=== PATIENT | male | born 1990 | race Caucasian/White ===

== ENCOUNTER 2023-09-02 18:16 | Inpatient (IN) | payer OTHER, SELFPAY ==
[2023-09-02] VITALS (13 sets, daily range): BP systolic 112–136; BP diastolic 67–83; BMI 26.8; BMI 26.5
[2023-09-02 14:56] LABS: Glucose - Point of Care 102 mg/dl (70-99)
--- NOTE | 2023-09-02 15:16 | ED.GENMED ---
History of Present Illness
General
Chief Complaint: Overdose Intentional
Time Seen by Provider: 09/02/23 15:16
History of Present Illness
History of Present Illness:
HPI: Patient comes in with police due to concerns that the patient swallowed bags of heroin and cocaine. He says that he obtained these bags while at rehab and [facility]. [facility]. He told me that
insurance ran out and he was going to be leaving anyways but then he was arrested and was brought here for further evaluation as the senior living refused him based on what happened today. He has a general unwell feeling including bilateral thigh pain.
EXAM:
GENERAL: Well appearing in no distress, he does not appear to be sedate, his eyes are open and he is interactive with examination
HEENT: Moist oral mucosa, pupils are 3 mm and slightly sluggish
CARDIOVASCULAR: No murmurs, normal heart rate, regular rhythm, No chest wall tenderness
PULMONARY: No respiratory distress, breath sounds are clear and equal
ABDOMEN: Soft with no peritoneal signs, no tenderness
NEUROLOGIC: Excellent strength all extremities, no coordination deficits
PSYCHIATRIC: Slightly agitated at times
EXTREMITIES: Nontender, no edema, moves all extremities equally
SKIN: Chronic appearing scar noted to the left anterior chest wall
TIME OF INITIAL ENCOUNTER: 3:20 PM
NUMBER AND COMPLEXITY OF PROBLEMS ADDRESSED AT THE ENCOUNTER
� Chronic conditions affecting care: High blood pressure, diabetes, anxiety/depression
� Acute Exacerbation and/or Progression of Chronic Illness: This is an acute problem
� Differential Diagnosis includes: Polysubstance use, rhabdomyolysis, electrolyte abnormality
AMOUNT AND/OR COMPLEXITY OF DATA TO BE REVIEWED AND ANALYZED
� I performed an independent evaluation of and my interpretation is:
EKG: Sinus 67, no acute ST abnormality with no old to compare
CT:
X-rays:
Laboratory Studies: White count 14.3, hemoglobin 12.6, chemistries normal however the CK is 1520, UDS positive for buprenorphine, fentanyl, and cocaine
Other:
� Review of other/old records: I reviewed records, the patient was seen here about 18 months ago after he says that he felt swallowed something like a screw but imaging at that time was reviewed and was negative.
� Clinical information was obtained by an independent historian: I spoke to corrections officers at bedside
� Prescriptions/Medications Considered but not given:
� Further testing considered but not performed:
RISK OF COMPLICATIONS AND/OR MORBIDITY OR MORTALITY OF PATIENT MANAGEMENT
� Social determinants of health affecting care: As above
� Discussion with other providers: I called [facility] toxicology at 4:28 PM however there has been no change in his clinical condition as of now.
� Escalation of care including admission/observation vs risk of discharge considered: Will give IV fluids and check labs and reassess. His initial vital signs are unremarkable and not consistent with any toxidrome. I did speak
to Dr. Elliott at [facility] and initially we had planned transfer to ICU level of care there however he [facility] in [facility] therefore be [facility] did not feel that he could cross County lines. Ultimately the
patient was accepted here by Dr. Claire for further management. I did give him 2 L of fluid does have an elevated CK. His vital signs have remained unchanged.
Past History
Past History
ED Past Medical History: HTN, NIDDM, Psychiatric (PTSD, anxiety) and Other (Drug abuse)
ED Past Surgical History: None
Social History
Tobacco: Smoker
Drug: Marijuana, Cocaine, Narcotics and IVDA
Living: senior living
Phy Exam
Physical Exam
Physical Exam:
See HPI
Course
Orders/Labs/Results
Orders:
Orders
09/02/23 15:23
0.9% Sodium Chloride 1000 ml [Nss] 1,000 ml IV BOLUS
09/02/23 16:26
Complete Blood Count/With Diff Urgent
Comprehensive Metabolic Panel Urgent
Total CK [Creatine Phosphokinase] Urgent
09/02/23 16:31
Drug Screen, Urine [Urine Drug Abuse Screen] Urgent
Date Specimen was Collected: 09/02/23
Time Specimen was Collected: 16:27
Fentanyl, Urine Urgent
09/02/23 17:28
0.9% Sodium Chloride 1000 ml [Nss] 1,000 ml IV BOLUS
09/02/23 18:02
Polyethylene Glycol 3350 [Gavilax] 238 gm PO ONCE ONE
09/02/23 18:10
Admit/Transfer Patient As Directed
Co-Sign Provider:
Level of Care: Inpatient admission
Assign to:: ICU
Physician / Group: tonya
Diagnosis: fentanyl, cocaine withdrawal
Reason for Hospitalization: fentanyl, cocaine withdrawal
Expected length of stay greater than two midnights?: Yes
ELOS- Estimated Length of Stay in days: 2
I certify the patient meets the requirements for IP care: Yes
Code Status As Directed
Resuscitation Status: Full Code
09/02/23 18:12
Buprenorphine [Subutex] 8 mg SL PRN PRN
Clinical Opioid Withdrawal Scale (COWS) .PRN
09/03/23 08:00
Buprenorphine [Subutex] 4 mg SL ONCE PRN PRN
Buprenorphine [Subutex] See Dose Instructions SL ONCE ONE
09/04/23 08:00
Buprenorphine [Subutex] See Dose Instructions SL DAILY
Abnormal Lab Results
09/02/23 09/02/23 09/02/23
14:55 16:26 16:31
WBC 14.3 H 10^3/uL
(4.8-10.8)
RBC 4.59 L 10^6/uL
(4.70-6.10)
Hgb 12.6 L g/dL
(13.0-18.0)
Hct 36.9 L %
(39.0-52.0)
MPV 10.7 H fL
(7.4-10.4)
Abs Immat Gran (auto) 0.1 H 10^3/uL
(0-0.05)
Absolute Neuts (auto) 10.7 H 10^3/uL
(1.4-6.5)
Absolute Monos (auto) 1.1 H 10^3/uL
(0.1-0.6)
Lymphocytes % 16.6 L %
(20.5-51.1)
Creatine Kinase 1520 H U/L
(55-170)
Ur Buprenorphine Positive H
(Negative)
Urine Fentanyl Screen Positive H
(Negative)
Urine Cocaine Screen Positive H
(Negative)
POC Glucose 102 H mg/dl
(70-99)
09/02/23 16:26
09/02/23 16:26
Vital Signs
Initial and Last Documented VS:
Initial Vital Signs
Temp Pulse Resp BP Pulse Ox
98.1 F 71 18 128/81 97
09/02/23 14:44 09/02/23 14:44 09/02/23 14:44 09/02/23 14:44 09/02/23 14:44
Last Documented Vital Signs
Temp Pulse Resp BP Pulse Ox
98.1 F 63 11 136/70 98
09/02/23 17:46 09/02/23 19:15 09/02/23 19:15 09/02/23 16:00 09/02/23 18:30
*Critical Care Note
Total Time (30-74mins, 75-104mins- exclusive of procedures): 45 minutes
comment:
Vital signs closely monitored for signs of any systemic toxidrome. Vital signs remained stable.
ED Attending Note
-
Portions of this chart may have been created with voice recognition software.� Occasional wrong word or��sound alike� substitutions may have occurred due to the inherent limitations of voice recognition software.
Discharge Plan
Departure
Patient Disposition: Admit
Date of Disposition: 09/02/23
Time of Disposition: 18:02
Presentation/result/management discussed w/ accepting MD/DO: Hospitalist
Discharge Problem:
Polysubstance abuse
Interventions
Interventions:
*Risk Screen - Suicide Last Done: 09/02/23 14:44
*General Assessment Last Done: 09/02/23 14:44
*Neglect/Abuse Screening Last Done: 09/02/23 14:44
ED- Fall Risk Assessment Last Done: 09/02/23 18:42
*ED COVID-19 Vaccine History Last Done: 09/02/23 18:42
ED- Cardiac Assessment Last Done: 09/02/23 15:00
ED- Neurological Assessment Last Done: 09/02/23 15:00
ED-Psychological Assessment Last Done: 09/02/23 15:00
ED- Pulmonary Assessment Last Done: 09/02/23 15:00
[2023-09-02] MEDS: NSS 1000 IV ×3 (16:34→20:00)
[2023-09-02 16:37] LABS: % Basophils 0.4 % (0-2); % Eosinophils 0.4 % (0-6); % Immature Granulocytes 0.4 % (0-0.5); % Lymphocytes 16.6 % (20.5-51.1); % Monocytes 7.6 % (1.7-9.3); % Neutrophils 74.6 % (42.2-75.2); Absolute Basophils 0.1 10^3/uL (0-0.2); Absolute Eosinophils 0.1 10^3/uL (0-0.7); Absolute Immature Granulocytes 0.1 10^3/uL (0-0.05); Absolute Lymphocytes 2.4 10^3/uL (1.2-3.4); Absolute Monocytes 1.1 10^3/uL (0.1-0.6); Absolute Neutrophils 10.7 10^3/uL (1.4-6.5); Hematocrit 36.9 % (39.0-52.0); Hemoglobin 12.6 g/dL (13.0-18.0); Mean Corp Hgb Conc. 34.1 g/dL (33.0-37.0); Mean Corpuscular Hgb 27.5 pg (27.0-31.0); Mean Corpuscular Volume 80.4 fL (80.0-94.0); Mean Platelet Volume 10.7 fL (7.4-10.4); Nucleated Red Blood Cells % 0 % (-); Platelet Count 216 10^3/uL (130-400); Red Blood Cell Count 4.59 10^6/uL (4.70-6.10); Red Cell Dist. Width 13.2 % (11.5-14.5); White Blood Cell Count 14.3 10^3/uL (4.8-10.8)
[2023-09-02 16:56] LABS: ALT (SGPT) 21 U/L (0-50); AST (SGOT) 59 U/L (17-59); Albumin 4.7 g/dl (3.5-5.0); Alkaline Phosphatase 81 U/L (38-126); Blood Urea Nitrogen 20 mg/dl (9-20); Calcium 9.7 mg/dl (8.4-10.2); Carbon Dioxide 25 mmol/L (22-30); Chloride 102 mmol/L (98-107); Estimated Creatinine Clearance 116 ml/min; Glucose 92 mg/dl (70-99); Potassium 4.1 mmol/L (3.5-5.1); Sodium 138 mmol/L (135-145); Total Bilirubin 0.7 mg/dl (0.2-1.3); Total Protein 7.2 g/dl (6.3-8.2); eGFR > 60.00
[2023-09-02 16:57] LABS: Creatine Phosphokinase 1520 U/L (55-170)
[2023-09-02 17:03] LABS: Amphetamines Negative (Negative); Barbiturates Negative (Negative); Benzodiazepines Negative (Negative); Buprenorphine Positive (Negative); Cocaine Positive (Negative); Marijuana Negative (Negative); Methadone Negative (Negative); Methamphetamines Negative (Negative); Opiates Negative (Negative); Phencyclidine Negative (Negative); Tricyclic Antidepressants Negative (Negative)
[2023-09-02 17:26] LABS: Fentanyl, Urine Positive (Negative)
--- NOTE | 2023-09-02 18:26 | HPS.HSE ---
Family Physician
-
Family Physician: INTERVIEWE UNKNOWN - PT NOT
Chief Complaint
-
drug intoxication
History of Present Illness
33-year-old male history of type 2 diabetes, asthma presenting from [facility] due to concern that patient swallowed bags of heroin and cocaine a few hours prior to arrival. He consumed 4 bags of cocaine/fentanyl. Patient
states that he was clean from drugs for over a year. He denies drinking alcohol or smoking nicotine or marijuana. Patient is complaining of cramping in his lower thighs, nausea, anxiety, chills and tremors and pain in his lower part of the belly
because he has have a bowel movement. He states he feels unwell. He also complains of chest pressure when he breathes.
Medical History
Past Medical History
Past Medical History: Reports Other ( type 2 diabetes, asthma)
Past Surgical History: Reports Other (right hand nerve surgery )
Social History
Tobacco: Non-smoker
Alcohol: None
Drug: Cocaine and Narcotics
Family History
Family History: Not pertinent
Allergies / Home Medications
Allergies reflects when Allergies were last updated in [employer].
Home Medications with original date entered in [employer]
Allergy/Medication List:
Allergies
Allergy/AdvReac Type Severity Reaction Status Date / Time
No Known Allergies Allergy Verified 02/24/22 19:15
Home Medications
buprenorphine HCl 8 mg sublingual tablet 16 mg sublingual DAILY 09/02/23
Review of Systems
-
Constitutional: Reports No Symptoms
EENT: Reports See HPI
Respiratory: Reports See HPI
Cardiac: Reports See HPI
Abdomen/GI: Reports See HPI
: Reports No Symptoms
Musculoskeletal: Reports See HPI
Skin: Reports No Symptoms
Neurological: Reports No Symptoms
Endocrine: Reports No Symptoms
Hematologic/Lymphatic: Reports No Symptoms
Psych: Reports No Symptoms
Physical Exam
Vital Signs
Vital Signs
Temp Pulse Resp BP Pulse Ox
98.1 F 81 12 136/70 99
09/02/23 17:46 09/02/23 18:00 09/02/23 18:00 09/02/23 16:00 09/02/23 17:45
Physical Exam
General: Well Developed, Well Nourished and No Apparent Distress
HEENT: NormoCephalic, Moist mucous membranes and Atraumatic
Respiratory: Clear
Cardiac: S1/S2 and Regular Rhythm; No Murmur or Rub
GI: Soft, Non Tender, Non Distended and Normal Bowel Sounds; No Organomegaly
Rectal: Deferred by Provider
Musculoskeletal: No Clubbing, No Cyanosis and No Edema
Skin: No Rash
Neuro: Nonfocal/grossly intact
Laboratory Results
-
09/02/23 16:26
09/02/23 16:26
Laboratory Results
Total Bilirubin 0.7 mg/dl (0.2-1.3) 09/02/23 16:26
AST 59 U/L (17-59) 09/02/23 16:26
ALT 21 U/L (0-50) 09/02/23 16:26
Alkaline Phosphatase 81 U/L (38-126) 09/02/23 16:26
Data Reviewed
-
Lab Data: Labs Reviewed by me
Old Records: Reviewed
Impression/Plan
-
IMPRESSION:
PLAN:
# Cocaine/Fentanyl intoxication, now with signs of opiate withdrawal
# History of opioid use disorder
-UDS positive for buprenorphine, fentanyl, cocaine
-IV fluids
-Opiate withdrawal protocol
-As needed Ativan for anxiety/agitation
-Patient normally takes 16 mg Subutex per day
-Toxicology recommended Narcan at bedside if needed but more concern for sympathomimetic response from cocaine if bag ruptures
-MiraLAX recommended for washout and given
# Rhabdomyolysis secondary to cocaine intoxication
-CK 1500
-IV fluids
# Chest pressure
-Check EKG
-Check troponin
Type 2 diabetes
-Takes insulin as needed
Asthma
Full code
DVT prophylaxis-heparin
Regular diet
[2023-09-02 19:00] LABS: Troponin I < 0.012 ng/ml
[2023-09-02] MEDS: HEPARIN 5000 UNITS SC (20:12)
[2023-09-02] MEDS: SUBUTEX 8 MG SL (20:13)
[2023-09-02] MEDS: FLUSH (NSS) 2 FLUSH IV (20:14)
[2023-09-02 20:49] LABS: APTT 33.1 Sec (23.4-35.0)
[2023-09-02 21:27] LABS: INR 1.31; PT 16.1 Sec (11.4-14.6)
--- NOTE | 2023-09-02 21:30 | PTCARENOTE ---
Pt arrived from ED approx 1930. Pt accompanied w 2 officers from Senior Director [employer]'s office. Pt walked self from stretcher in hallway into room without incidence. Pt is AAO3, anxious/flat/withdrawn. Initial COWS score is 13. Admission questions answered by
patient, states he was trying to kill himself by swallowing illegal substances so he wouldn't have to go to [facility]; power screwdriver operator WET ROOM SUPERVISOR, Luisa Mir, notified. WET ROOM SUPERVISOR ordered 1:1 observation, per protocol officers take the place of associate and will remain
with patient at all times.
Lung sounds are clear, shallow respirations, pox 95% on room air. Pt reports discomfort with deep breathing. Telemetry rhythm reveals SR, HR 60-70's, no edema noted, palpable peripheral pulses present. HypoBS, per pt he has not had a bm in 3 days
and feels 'uncomfortable.' Pt denies nausea. Pt ordered Gavilax PO, awaiting Gatorade to be brought to unit by nursing transmission maintenance supervisor. Pt reported feeling hungry, boxed lunch from ED provided to patient. Urinal at bedside, pt voiding yellow urine
without difficulty. Skin intact. Bedside CXR and abd xray performed. R AC int flushed and patent, IVF per order. Safe environment maintained, will monitor closely.
[2023-09-02] MEDS: GAVILAX 238 GM PO (21:42)
[2023-09-03] VITALS (18 sets, daily range): BP systolic 109–143; BP diastolic 70–100; BMI 26.5
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
[2023-09-03] MEDS: NSS 1000 IV ×2 (03:36→11:49)
[2023-09-03] MEDS: TYLENOL 650 MG PO (04:47)
[2023-09-03] MEDS: SUBUTEX 8 MG SL (04:59)
[2023-09-03 05:11] LABS: % Basophils 0.5 % (0-2); % Eosinophils 4.1 % (0-6); % Immature Granulocytes 0.3 % (0-0.5); % Lymphocytes 35.6 % (20.5-51.1); % Monocytes 10.3 % (1.7-9.3); % Neutrophils 49.2 % (42.2-75.2); Absolute Eosinophils 0.3 10^3/uL (0-0.7); Absolute Lymphocytes 2.4 10^3/uL (1.2-3.4); Absolute Monocytes 0.7 10^3/uL (0.1-0.6); Absolute Neutrophils 3.3 10^3/uL (1.4-6.5); Hematocrit 34.2 % (39.0-52.0); Hemoglobin 11.4 g/dL (13.0-18.0); Mean Corp Hgb Conc. 33.3 g/dL (33.0-37.0); Mean Corpuscular Hgb 27.4 pg (27.0-31.0); Mean Corpuscular Volume 82.2 fL (80.0-94.0); Mean Platelet Volume 11.1 fL (7.4-10.4); Nucleated Red Blood Cells % 0 % (-); Platelet Count 175 10^3/uL (130-400); Red Blood Cell Count 4.16 10^6/uL (4.70-6.10); Red Cell Dist. Width 13.2 % (11.5-14.5); White Blood Cell Count 6.6 10^3/uL (4.8-10.8)
--- NOTE | 2023-09-03 05:28 | PTCARENOTE ---
Pt has only drank approximately 1/2 the ordered dose of Gavilax. Frequent reminding and encouragement for pt to continue drinking medication. No bm. Pt sleeping when undisturbed, wakens easily to tactile/verbal stimuli. Pt remains cooperative. COWS
score increasing, score of 8 noted. Called and spoke w pharmacist Su regarding 2nd Subutex dose. 2nd dose administered, will monitor for effect.
[2023-09-03 05:41] LABS: ALT (SGPT) 18 U/L (0-50); AST (SGOT) 41 U/L (17-59); Albumin 3.6 g/dl (3.5-5.0); Alkaline Phosphatase 60 U/L (38-126); Blood Urea Nitrogen 14 mg/dl (9-20); Calcium 8.7 mg/dl (8.4-10.2); Carbon Dioxide 27 mmol/L (22-30); Chloride 107 mmol/L (98-107); Creatine Phosphokinase 884 U/L (55-170); Estimated Creatinine Clearance 116 ml/min; Glucose 79 mg/dl (70-99); Potassium 3.9 mmol/L (3.5-5.1); Sodium 139 mmol/L (135-145); Total Bilirubin 0.8 mg/dl (0.2-1.3); Total Protein 5.8 g/dl (6.3-8.2); eGFR > 60.00
--- NOTE | 2023-09-03 07:14 | CON.INTV ---
Consultation
Consultation Request
Date/Time Consultation Requested: 09/03/23
Date/Time Consultation Performed: 09/03/23
Performing Provider: Madi
Reason for Consultation: ICU
Medical History
-
History of Present Illness:
Patient is a 33-year-old male with previous history of polysubstance abuse presenting from [facility] for acute intoxication of cocaine and fentanyl. He states that he ingested 4 bags of fentanyl and cocaine few hours prior
to arrival. He additionally complains of cramping in his lower extremities, anxiety, chills. There is high suspicion for opiate withdrawal. He has previous history in which he has ingested foreign body in 2021 including a screw and other bags of
illicit drugs and presented to the ER in which imaging could not confirm.
Admitted to ICU for potential w/d.
Past Medical History
Past Medical History: Other
Social History
Tobacco: Non-smoker
Alcohol: None
Drug: Cocaine and Narcotics
Family History
Family History: Reviewed & Not Pertinent
Allergies / Home Medications
Allergies
Allergy/AdvReac Type Severity Reaction Status Date / Time
No Known Allergies Allergy Verified 02/24/22 19:15
Home Medications
�Medication �Instructions �Recorded �Confirmed �Last Taken �Type
buprenorphine HCl 8 mg sublingual 16 mg sublingual DAILY 09/02/23 09/02/23 09/01/23 History
tablet
Review of Systems
-
History Source: Patient
All other systems: Negative unless noted
Vitals / Labs / Diagnostic Testing
Vital Signs
Temp Pulse Resp BP Pulse Ox
98.0 F 57 10 112/77 96
09/03/23 03:19 09/03/23 06:00 09/03/23 06:00 09/03/23 06:00 09/03/23 06:00
Lab Data
09/03/23 04:42
09/03/23 04:42
Laboratory Results
09/02/23
20:25
PT 16.1 H
INR 1.31
APTT 33.1
Diagnostic Testing:
Physical Exam
-
HEENT: Normocephalic, Anicteric and Moist Mucous Membranes
Cardiovascular: S1/S2 and Regular Rhythm
Respiratory: Clear and Non-Labored Respirations
GI: Soft, Non Distended and Normal Bowel Sounds
Neurology: Awake, Alert, Oriented, AO x 3 and No Motor Deficits
Skin: Warm, Dry and Good Color
General: Comfortable and Other (NAD)
Assessment
-
Patient is a 33-year-old male with previous history of polysubstance abuse presenting from [facility] for acute intoxication of cocaine and fentanyl. He states that he ingested 4 bags of fentanyl and cocaine few hours prior
to arrival. He additionally complains of cramping in his lower extremities, anxiety, chills. There is high suspicion for opiate withdrawal. He has previous history in which he has ingested foreign body in 2021 including a screw and other bags of
illicit drugs and presented to the ER in which imaging could not confirm.
Admitted to ICU for potential w/d.
Acute intoxication, UDS + (possibly just chronic use)
Polysubstance abuse
Risk for withdrawal
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
Type 2 diabetes
Asthma
Right hand nerve surgery
Plan
No current signs of metabolic encephalopathy or MS changes/following commands
Received subutex and appears comfortable, no signs of withdrawal
UDS may reflect chronic use, not acute
Imaging not supportive of claims of ingestion, he has been seen in ER in the past for ingestion claims
Psychiatric history not noted, but likely, psych eval
Denies pain at this time.
Pain/sedation: PRN
RASS goals: 0
Hemodynamically stable, not requiring pressors.
Cardiac history reviewed--none
No prior ECHO for review
Monitor on telemetry
Oxygen needs: stable on RA
Prior history of lung disease: asthma
Can add nebs PRN
Supplemental O2 as indicated to maintain sats > 89%
CXR/CT reviewed indicating no acute process
Advance diet as tolerated
Aspiration precautions, HOB > 30 degrees
Creat at baseline, no history of renal disease
Void trials
Follow urine output, critical I/Os
Replete electrolytes as needed
No signs/symptoms suspicious for infectious etiology at this time
Observe off antibiotics for now
Follow fever trend, WBC count
CBC stable, no signs of bleeding or coagulopathy.
DVT prophylaxis as assessed based on risk, including mechanical SCDs
Can transfuse if indicated for Hb <7, plt < 10
No prior h/o diabetes or thyroid disease
Monitor accuchecks PRN/SS coverage if needed
Can transfer back to [facility], appears stable overall. If transferred to floors, we will sign off.
Discussed plan with care team.
Diagnostic Data
Chest X-Ray: 09/02/23- No acute cardiopulmonary process.
02/24/22- No acute cardiopulmonary process. No radiopaque foreign body identified.
AXR 09/02/23- No dilated bowel loops. No radiographically demonstrable foreign body.
02/24/22- No evidence to suggest ingested radiopaque foreign body. Constipation with mild to moderate fecal burden.
CT Scan: AP 09/19/21- No convincing CT evidence for a radiopaque foreign body in the gastrointestinal tract on this exam. Mild wall thickening of the sigmoid colon may be on the basis of a mild infectious or inflammatory colitis. A small amount of
free fluid in the pelvis is favored to be reactive. Gas in the abdomen is favored to be intraluminal within small bowel and colon, however evaluation of the confines of bowel loops is significantly limited due to the paucity of intra-abdominal fat
and the lack of oral and intravenous contrast. If there is a clinical concern for perforated viscus, a repeat examination with oral contrast could be considered.
Echo:
PFT's:
Reports and relevant images were personally reviewed.
-----
Critical care time 50 mins -- this includes review of history, physical exam, medications, hemodynamic/ventilator parameters, laboratory data, imaging and discussion with house staff, pharmacy, respiratory therapy, buffing and sueding machine operator, and nursing.
--- NOTE | 2023-09-03 07:40 | W.PN.HOSP.TC ---
Today's Communication/Plan
-
consult psych
CT scan ab/pelvis to look for foreign bodies (x-ray neg)
no obvious signs of cocaine intoxication (not tachycardic, not hypertensive, not febrile)
cont 1:1
Assessment / Plan
Assessment / Plan
pt is a 33 year old male
Cocaine/Fentanyl intoxication ( History of opioid use disorder) now with signs of opiate withdrawal--UDS positive for buprenorphine (pt takes Subutex 16mg daily), fentanyl, cocaine--cont IVF, ativan PRN, opiate WD protocol--Toxicology recommended
Narcan at bedside if needed but more concern for sympathomimetic response from cocaine if bag ruptures--MiraLAX recommended for washout and given, still no BM --abdominal x-ray without signs of foreign bodies
suicidal ideations--says he took the drugs to kill himself since he doesn't want to go back to [facility]--cont 1:1--consult psych
Rhabdomyolysis secondary to cocaine intoxication--CK 1500 on admission, down to 884--cont IVF
Chest pressure--EKG normal, troponin normal--likely due to drug withdrawal
Type 2 diabetes--Takes insulin as needed
Asthma
code status --Full code
DVT prophylaxis-heparin
Anticipated Discharge: 24 - 48 hours
Subjective/Interval History
-
Date of Service: September 03, 2023
pt reports no BM in 4 days--swallowed bags of drugs (heroin and cocaine) in a suicide attempt to not go back to custodial
Objective Data
-
Labs:
Laboratory Results
09/02/23 09/03/23
20:25 04:42
WBC 6.6
Hgb 11.4 L
Hct 34.2 L
Plt Count 175
PT 16.1 H
INR 1.31
APTT 33.1
Sodium 139
Potassium 3.9
Chloride 107
Carbon Dioxide 27
BUN 14
Creatinine 1.0
Glucose 79
Calcium 8.7
Total Bilirubin 0.8
AST 41
ALT 18
Alkaline Phosphatase 60
Vital Signs:
max temp for 24 hours
09/02/23
23:28
Temp 98.2 F
Vital Signs
Temp Pulse Resp BP Pulse Ox
98.2 F 57 10 112/77 96
09/03/23 07:20 09/03/23 06:00 09/03/23 06:00 09/03/23 06:00 09/03/23 06:00
I&O
09/02/23 09/03/23 09/04/23
06:59 06:59 06:59
Intake Total 4310 / 4310
Output Total 900 / 900
Balance 3410 / 3410
Review of Systems
-
All other systems: Reviewed and negative
Musculoskeletal: Reports Arthralgias and Myalgias
Physical Exam
-
General: Well Developed, Well Nourished and No Apparent Distress
HEENT: Normocephalic and Atraumatic; Negative Oxygen
Respiratory: Clear to Auscultation; Negative Wheezes or Rhonchi
Cardiac: Regular Rhythm and S1/S2; Negative Murmur or Tachycardic
GI: Soft, Nontender, Nondistended and Normal Bowel Sounds
Musculoskeletal: No Clubbing, No Cyanosis, No Edema and Other (handcuffed to bed)
Neuro: Awake and Alert
Psych: Calm
[2023-09-03] MEDS: HEPARIN 5000 UNITS SC (08:17)
[2023-09-03] MEDS: NICODERM TRANSDERMAL 14 MG TRANSDERM (09:09)
[2023-09-03] MEDS: OMNIPAQUE 50 ML PO (09:11)
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
[2023-09-03] MEDS: WELLBUTRIN XL (24 hour extended release) 150 MG PO (13:39)
--- NOTE | 2023-09-03 14:03 | W.DCSUMMARY ---
Discharge Summary
Discharge Data
Date of Admission: 09/02/23
Date of Discharge: 09/03/23
-
Pending Results: No
Hospital Course
Primary care physician : Etienne HUNTER
Principal Discharge diagnosis : Cocaine/fentanyl intoxication due to ingestion in attempted suicide, rhabdomyolysis
Chronic Discharge diagnosis : Type 2 diabetes mellitus, asthma
Hospital Course : Patient was a 33-year-old male with a history of type 2 diabetes who presented from the [facility] due to concern that the patient alleged to swallow bags of heroin and cocaine a few hours prior to arrival.
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 He denied drinking alcohol or smoking nicotine. He was complaining of cramping in his lower thighs, nausea, anxiety, chills in the lower part of his belly as he has yet to have a bowel movement.
Patient was admitted.
Problem #1: Cocaine/fentanyl intoxication due to ingestion in attempted suicide. Patient states that he ingested these as a suicide attempt because he does not want a go back to [facility]. He was placed on a 1:1. Urine tox screen was positive for
buprenorphine, fentanyl, cocaine. Buprenorphine was prescribed prior to admission here. Emergency department did speak with poison control/toxicology who recommended Narcan at bedside. At the time of my evaluation, patient was calm, watching TV,
not tachycardic and not hypertensive. He was sipping on his MiraLAX and had not yet had a bowel movement. Abdominal x-ray did not show any foreign bodies. CAT scan of the abdomen pelvis was also done which did not show any foreign bodies.
Because he stated this was a suicide attempt, psychiatry was consulted. Psychiatry has started Wellbutrin 150 mg daily and has cleared him for discharge back to the [facility] with recommendations of following up with acute psychiatric follow-up since
he was started on a new medication.
Problem #2: Rhabdomyolysis. This was presumably due to cocaine ingestion. CPK on admission was 1500 and with IV fluid administration down to 884. Likely cause of his body aches.
Problem 3: All other medical issues. These include Type 2 diabetes mellitus, asthma. These medical issues were stable during his hospitalization. Medications were continued as able.
Patient is stable for discharge back to the [facility] at this time. If there are any questions regarding this dictation or his hospital stay, please not hesitate to call. Our office number is [phone].
Discharge Plan
-
Patient Disposition: Long Term
Discharge Diagnosis/Procedures: Cocaine/fentanyl intoxication with reported ingestion of bags of said substances and a reported suicide attempt, rhabdomyolysis, type 2 diabetes, asthma
Condition: Good
Diet: As tolerated and Regular
Activity: As tolerated
Driving Restrictions: No driving
Bathing Restrictions: None
Activity Restrictions/Additional Instructions:
Patient needs acute psychiatric follow-up at the [facility] as he was started on Wellbutrin, as per recommendations of psychiatry here.
Referrals:
UNKNOWN - PT NOT,INTERVIEWE [Family Provider] - in less than 1 week
Prescriptions:
New
bupropion HCl 150 mg Tablet Extended Release 24 Hr
150 mg PO DAILY Qty: 30 0RF
Continued
buprenorphine HCl 8 mg Tablet, Sublingual
16 mg SUBLINGUAL DAILY
Patient Comments:
09/02/2023, last filled on 08/16/2023 for 30 tablets per PDMP.
Discharge Orders:
Discharge Patient (As Directed); Ordered 09/03/23
Ordered By: Shira Claire
Discharge Date and Time
Print Language: CITIZEN [place]
--- NOTE | 2023-09-03 15:22 | PTCARENOTE ---
Discharge instructions reviewed with patient and officers from [facility]'s office present at bedside. Pt medically cleared for discharge and incarceration. Wheelchair escort with [employer] to [facility] vehicle.
== END 2023-09-03 15:24 | DRG 918 ==
LOC: ICU 18:16
PROVIDERS: Nurse Practitioner; ADMITTING PHYSICIAN Hospitalist; ATTENDING PHYSICIAN Internal Medicine; CONSULT PHYSICIAN Psychiatry & Neurology Psychiatry; EMERGENCY PHYSICIAN Emergency Medicine; OTHER PHYSICIAN Internal Medicine
DX: T40.412A Poisoning by fentanyl or fentanyl analogs, intentional self-harm, initial encounter (principal); F11.13 Opioid abuse with withdrawal; M62.82 Rhabdomyolysis; R45.851 Suicidal ideations; T40.5X2A Poisoning by cocaine, intentional self-harm, initial encounter; Y92.199 Unspecified place in other specified residential institution as the place of occurrence of the external cause; I10 Essential (primary) hypertension; E11.9 Type 2 diabetes mellitus without complications; F41.9 Anxiety disorder, unspecified; F19.90 Other psychoactive substance use, unspecified, uncomplicated; F32.A Depression, unspecified; F43.10 Post-traumatic stress disorder, unspecified; F17.200 Nicotine dependence, unspecified, uncomplicated; J45.909 Unspecified asthma, uncomplicated; F14.120 Cocaine abuse with intoxication, uncomplicated; R45.1 Restlessness and agitation; Z62.810 Personal history of physical and sexual abuse in childhood; Z79.4 Long term (current) use of insulin; Z91.51 Personal history of suicidal behavior; Z81.4 Family history of other substance abuse and dependence
CPT/HCPCS: 71045; 74018; 74177; 80053; 80306; 80307; 82550; 82962; 84484; 85025; 85610; 85730; 87070; 93005; 99406; Q9967